=== PATIENT | male | born 1960 | race Caucasian/White ===

== ENCOUNTER 2018-04-06 11:46 | Emergency (ER) | payer MEDICAID ==
[~2018-04-06] VITALS: Ht 172.7 cm; Wt 78.6 kg
[2018-04-06 11:56] VITALS: BP 137/83
== END 2018-04-06 12:23 | disposition home or self-care (01) ==
LOC: ED 12:05
DX: B19.20 Unspecified viral hepatitis C without hepatic coma (principal); Z76.0 Encounter for issue of repeat prescription; F17.200 Nicotine dependence, unspecified, uncomplicated
CPT/HCPCS: 99281